=== PATIENT | female | born 1975 | race American Indian/Alaskan Native ===

== ENCOUNTER 2021-07-14 09:27 | Outpatient (CLI) | payer OTHER ==
--- NOTE | 2021-07-14 15:35 | Fluoroscopy Report ---
Esophagram Indication: Obesity, preoperative evaluation.. Technique: Single and double contrast barium technique utilized to evaluate the esophagus. Findings: Initial him specialist radiograph was performed. Small sample of thin barium was swallowed and no ev idence of aspiration was identified. Rapid sequence fluoroscopic evaluation of the cervical esophagus was performed in the lateral and frontal projections. Patient was placed in the LPO position and maryam ble contrast fluoroscopic evaluation of the esophagus was performed. Swallowing was normal. No mucosal irregularity, mass, mass effect, or critical stenosis. There were no abnormal tertiary c ontractions as seen with dysmotility. No gastroesophageal reflux. No hiatal hernia. Impression: Unremarkable fluoroscopic esophagram. Specifically, no evidence of gastroesophageal reflux or hiatal hernia. Fluoroscopic time: 1.2 minutes Number of fluoroscopic images: 22 Signer Name: Tho Weaver MD Signed: 07/14/2021 3:30 PM Workstation Name: [id number]
--- NOTE | 2021-07-14 19:21 | Electrocardiograph Report ---
[facility] Test Date: 2021-07-14 Test Time: 10:15:27 Pat Name: CATHERINE HERNANDEZ Department: Room: Gender: F Retail Equipment Associate: DAX : 1975 Requested By: EVARISTO MARTIN Order Number: [id number] Reading MD: Geena Zhao Measurements Intervals [place] Rate: 71 P: 7 NM: 175 QRS: -14 QRSD: 106 T: 3 QT: 386 QTc: 420 Interpretive Statements Sinus rhythm No previous ECG available for comparison Electronically Signed On 07-14-2021 19:20:37 EDT by Geena Zhao
--- NOTE | 2021-07-16 08:44 | Treadmill Report ---
[facility] Test Date: 2021-07-14 Test Time: 11:07:00 Pat Name: CATHERINE HERNANDEZ Department: CARDIOLOGY Room: LAB 1 Gender: F [employer]let Crusher: Faith Chowdhury : 1975 Requested By: EVARISTO MARTIN Order Number: [id number] Reading MD: Brain Cuevas Interpretive Statements Electronically Signed On 07-16-2021 8:43:55 EDT by Brain Cuevas
--- NOTE | 2021-07-30 13:50 | Treadmill Report ---
DATE OF SERVICE: 07/14/2021 This stress EKG being performed on a 45-year-old female on 07/14/2021. Baseline EKG showed sinus rhythm at a rate of 74 beats per minute. Resting blood pressure was 129/81 and peak blood pressure was 157/84. The patient exercised for 7 minutes on a standard Gaudencio protocol and exercise was stopped because of fatigue. No chest pain. The patient attained a maximum heart rate of 169 beats per minute, which is 97% of predicted maximum heart rate. No EKG changes from baseline. No arrhythmia. FINAL IMPRESSION: 1. Good exercise tolerance. 2. Negative for angina, negative for ischemia and EKG. 3. Appropriate blood pressure response. No edema. Prognostically, this is a low risk study. TID: [id number] RECEIPT: [id number] AUREA/JARROD
== END 2021-07-14 09:28 | disposition home or self-care (01) ==
LOC: FLUORO 09:27
PROVIDERS: ATTEND Surgery
DX: E66.01 Morbid (severe) obesity due to excess calories (principal); E66.2 Morbid (severe) obesity with alveolar hypoventilation
CPT/HCPCS: 74220; 93005; 93017

== ENCOUNTER 2021-07-22 11:59 | Outpatient (CLI) | payer OTHER | END 2021-07-22 12:00 | disposition home or self-care (01) | LOC: PF 11:59 | PROVIDERS: ATTEND Surgery | DX: E66.01 Morbid (severe) obesity due to excess calories (principal); E66.2 Morbid (severe) obesity with alveolar hypoventilation | CPT/HCPCS: 94010; 94726; 94729 ==

== ENCOUNTER 2021-09-08 06:30 | Day surgery (SDC) | payer OTHER ==
[2021-09-08] MEDS ORDERED: SODIUM CHLORIDE 0.9% 1000 ML 1,000 ML IV SCH (07:00)
--- NOTE | 2021-09-08 08:15 | Discharge Summary ---
Providers - Providers Date of Admission: 09/08/2021 Date of discharge: 09/08/21 Attending physician: EVARISTO MARTIN MD Primary care physician: TALENT [facility] Hospitalization Reason for admission: pre-op egd Condition: Good Procedures: egd with bx Hospital course: Pt presented for a pre-op EGD as part of planning for up coming bariatric surgery. Procedure was uneventful and pt recovered well and was discharged to home. Disposition: 01 HOME / SELF CARE / HOMELESS Final Discharge Diagnosis (Prints w/discharge instructions): dyspepsia, morbid obesity Core Measure Documentation - Palliative Care Palliative Care/ Comfort Measures: Not Applicable - Core Measures Any of the following diagnoses?: none Exam - Physical Exam Narrative exam: unchanged from pre-op Plan Activity: no restrictions Diet: low carbohydrate Follow up with: PRIMARY CAREMD [Primary Care Provider] - 7 Days
--- NOTE | 2021-09-08 08:16 | Operative Report ---
Operative Report Operative Report: DATE: 09/08/2021 SURGERY: Upper endoscopy. SURGEON: Marilin Woodruff M.D. PROCEDURE: EGD with biopsy PRE OP DX: morbid obesity, GERD POST OP DX: morbid obesity, GERD TYPE OF ANESTHESIA: MAC. ESTIMATED BLOOD LOSS: None. COMPLICATIONS: None. SPECIMENS REMOVED: antral biopsy FINDINGS: 1. Small hiatal hernia. 2. gastritis INDICATIONS:INDICATION FOR PROCEDURE: Patient is a 46-year-old female with a long history of morbid obesity. She is planned to have a weight loss procedure and is here for preoperative planning EGD. PROCEDURE DETAILS: After consent was reviewed, patient was taken back to the operating room where patient was placed in the left lateral decubitus position and a bite block was placed in the mouth. After a time-out was called, MAC anesthesia was initiated. I then passed the endoscope into her oropharynx, into her esophagus, visualized the entire esophagus, which was all within normal limits. Z-line was noted to about 38cm from incisors. I then visualized the stomach and the first portion of the duodenum and there were no abnormalities I could clearly visualize except for antral gastritis. A cold forceps biopsy of the antrum was taken and will be sent to pathology to evaluate for H.pylori. I then retroflexed the scope in the stomach and visualized the hiatus and I could see a small hiatal hernia. I then desufflated the stomach and removed the endoscope. Patient tolerated procedure well and was transferred to recovery room in good and stable condition.
--- NOTE | 2021-09-08 08:37 | Anesthesia Day of Surgery ---
Anesthesia Day of Surgery - Day of Surgery Patient Examined: Yes Patient H&P Reviewed: Yes Patient is NPO: Yes
--- NOTE | 2021-09-08 08:43 | Anesthesia Consultation ---
Anesthesia Consult and Med Hx Date of service: 09/08/21 - Airway Anesthetic Teeth Evaluation: Good ROM Head & Neck: Adequate Mental/Hyoid Distance: Adequate Mallampati Class: Class II Intubation Access Assessment: Good - Pre-Operative Health Status ASA Pre-Surgery Classification: ASA3 Proposed Anesthetic Plan: MAC - Pulmonary Hx Smoking: No Hx Sleep Apnea: Yes - Cardiovascular System Hx Hypertension: No - Endocrine Hx Hypothyroidism: Yes - Other Systems Hx Obesity: Yes
[2021-09-08] MEDS ORDERED: LIDOCAINE MPF (2%) 20 MG/1 ML VIAL 5 ML ONE (09:31)
[2021-09-08] MEDS ORDERED: propofoL 200 MG/20 ML VIAL IV ONE ×2 (09:31→09:43)
[2021-09-08 10:10] VITALS: BP 134/85
--- NOTE | 2021-09-08 16:01 | Post Anesthesia Evaluation ---
- Post Anesthesia Evaluation Patient Participated: Yes Airway Patent: Yes Stable Respiratory Function: Yes Nausea/Vomiting: No Temp > 96.8F: Yes Pain Manageable: Yes Adequeate Hydration: Yes Anesthesia Complications: No Block Receding Appropriately: Not Applicable Patient on Ventilator: No
== END 2021-09-08 06:31 | disposition home or self-care (01) ==
LOC: GIO 06:30
PROVIDERS: ATTEND Surgery
DX: E66.01 Morbid (severe) obesity due to excess calories (principal); K21.9 Gastro-esophageal reflux disease without esophagitis; K30 Functional dyspepsia; K44.9 Diaphragmatic hernia without obstruction or gangrene; K29.50 Unspecified chronic gastritis without bleeding; K31.89 Other diseases of stomach and duodenum; B96.81 Helicobacter pylori [H. pylori] as the cause of diseases classified elsewhere; E03.9 Hypothyroidism, unspecified; G47.30 Sleep apnea, unspecified; Z68.41 Body mass index [BMI] 40.0-44.9, adult
CPT/HCPCS: 43239; 88305; 88342; J2704; J3490; J7120